=== PATIENT | female | born 1980 | race Caucasian/White ===

== ENCOUNTER 2017-10-15 16:19 | Inpatient (IN) | payer MEDICAID ==
[2017-10-15] MEDS ORDERED: METHYLERGONOVINE 0.2 MG INJ IM (18:30)
[2017-10-15] MEDS ORDERED: MISOPROSTOL 200 MCG TAB PR (18:30)
[2017-10-15] MEDS ORDERED: CARBOPROST 250 MCG INJ IM (18:30)
[2017-10-15] MEDS ORDERED: LIDOCAINE 1% (MPF) 30 ML INJ INJ (18:30)
[2017-10-15 18:44] LABS: ADD MAN DIFF? NO
[2017-10-15 18:48] LABS: WHITE BLOOD COUNT 11.1 10^3/ul (4.8-10.8)
[2017-10-15 18:48] LABS: BASOPHIL # 0.1 10^3/ul (0.0-0.1); BASOPHILS % 0.8 % (0.0-2.0); EOSINOPHILS # 0.9 10^3/ul (0.0-0.5); HEMOGLOBIN 12.3 g/dl (12.0-16.0); LYMPHOCYTES # 1.9 10^3/ul (0.8-2.9); LYMPHOCYTES % 17.1 % (15.0-51.0); MEAN CORPUSCULAR HEMOGLOBIN 29.8 pg (29.0-33.0); MEAN CORPUSCULAR HGB CONC 33.2 g/dl (32.0-37.0); MEAN CORPUSCULAR VOLUME 89.6 fl (82.0-101.0); MEAN PLATELET VOLUME 11.2 fl (7.4-10.4); MONOCYTE # 1.1 10^3/ul (0.3-0.9); MONOCYTES % 9.4 % (0.0-11.0); NEUTROPHIL # 6.9 10^3/ul (1.6-7.5); NEUTROPHILS % 62.1 % (39.0-77.0); PLATELET COUNT 156 10^3/UL (140-415); RED BLOOD COUNT 4.13 10^6/ul (4.20-5.40); RED CELL DISTRIBUTION WIDTH 14.3 % (11.5-14.5)
[2017-10-15] MEDS: LACTATED RINGER'S 1,000 ML IV* (18:50)
[2017-10-15 19:08] LABS: INR 0.95; PARTIAL THROMBOPLASTIN TIME 28.2 Sec (25.0-35.0); PROTIME 12.8 Sec (11.9-14.9)
[2017-10-15 19:41] LABS: HEPATITIS B SURFACE ANTIGEN NEGATIVE (NEGATIVE)
[2017-10-15] MEDS: OXYTOCIN 30 UNITS/LR 500 ML IV (21:30)
[2017-10-16] MEDS: LACTATED RINGER'S 1,000 ML IV* ×4 (01:44→17:44)
[2017-10-16] MEDS ORDERED: FENTAnyl 2MCG/ML-ROPIV 0.2% 100 ML (08:40)
[2017-10-16 11:15] LABS: ADD UMIC NO; UR ASCORBIC ACID NEGATIVE (NEGATIVE); UR BILIRUBIN (Dip) NEGATIVE (NEGATIVE); UR BLOOD (Dip) NEGATIVE (NEGATIVE); UR CLARITY CLEAR (CLEAR); UR COLOR STRAW (YELLOW); UR GLUCOSE (Dip) NEGATIVE (NEGATIVE); UR KETONES (Dip) TRACE mg/dL (NEGATIVE); UR LEUKOCYTE ESTERASE (Dip) NEGATIVE Leu/ul (NEGATIVE); UR NITRITE (Dip) NEGATIVE (NEGATIVE); UR SPECIFIC GRAVITY (Dip) 1.006 (1.003-1.030); UR TOTAL PROTEIN (Dip) NEGATIVE (NEGATIVE); UR UROBILINOGEN (Dip) NEGATIVE (NEGATIVE)
[2017-10-16] MEDS ORDERED: FENTAnyl 2MCG/ML-ROPIV 0.2% 100 ML BAG EPI (11:30)
[2017-10-16] MEDS ORDERED: DIPHENHYDRAMINE 50 MG INJ IV (11:30)
[2017-10-16] MEDS ORDERED: ONDANSETRON 4 MG INJ IV (11:30)
[2017-10-16] MEDS ORDERED: NALOXONE (0.4 MG/ML) INJ IV (11:30)
[2017-10-16] MEDS ORDERED: TRIMETHOBENZAMIDE 100 MG/ML VIAL IM (11:30)
[2017-10-16] MEDS: OXYTOCIN 30 UNITS/LR 500 ML IV ×2 (13:53→14:06)
[2017-10-16] MEDS ORDERED: OXYTOCIN 30 UNITS/LR 500 ML IV (16:30)
[2017-10-16] MEDS ORDERED: DIBUCAINE 1% 30 GM OINT TOP (16:30)
[2017-10-16] MEDS ORDERED: MISOPROSTOL 200 MCG TAB PR (16:30)
[2017-10-16] MEDS ORDERED: HYDROCODONE/APAP (5/325) TAB PO ×2 (16:30)
[2017-10-16] MEDS ORDERED: WITCH HAZEL/GLYCERIN PAD PR (16:30)
[2017-10-16] MEDS ORDERED: CARBOPROST 250 MCG INJ IM (16:30)
[2017-10-16] MEDS ORDERED: METHYLERGONOVINE 0.2 MG INJ IM (16:30)
[2017-10-16] MEDS ORDERED: ZOLPIDEM 5 MG TAB PO (16:30)
[2017-10-16] MEDS ORDERED: BENZOCAINE 20% 56 ML SPRAY TOP (16:30)
[2017-10-16] MEDS: IBUPROFEN 600 MG TAB PO ×2 (17:12→23:37)
[2017-10-16] MEDS: CEPHALEXIN 500 MG CAP PO ×2 (17:12→23:37)
[2017-10-16] MEDS: MAGNESIUM HYDROXIDE 30ML CUP PO (20:58)
[2017-10-16] MEDS: SENNA/DOCUSATE NA (8.6MG/50MG) TAB PO (20:58)
[2017-10-16 21:33] LABS: RAPID PLASMA REAGIN NONREACTIVE (NR)
[2017-10-17] MEDS: LACTATED RINGER'S 1,000 ML IV* ×3 (02:21→16:25)
[2017-10-17] MEDS: IBUPROFEN 600 MG TAB PO ×4 (05:49→23:30)
[2017-10-17] MEDS: CEPHALEXIN 500 MG CAP PO ×4 (05:49→23:30)
[2017-10-17] MEDS: SENNA/DOCUSATE NA (8.6MG/50MG) TAB PO ×2 (10:05→21:29)
[2017-10-17] MEDS: MAGNESIUM HYDROXIDE 30ML CUP PO ×2 (10:06→21:29)
[2017-10-17 11:07] LABS: ADD MAN DIFF? NO
[2017-10-17 11:15] LABS: WHITE BLOOD COUNT 14.6 10^3/ul (4.8-10.8)
[2017-10-17 11:15] LABS: BASOPHIL # 0.1 10^3/ul (0.0-0.1); BASOPHILS % 0.8 % (0.0-2.0); EOSINOPHILS # 0.6 10^3/ul (0.0-0.5); EOSINOPHILS % 3.8 % (0.0-7.0); HEMATOCRIT 34.4 % (37.0-47.0); HEMOGLOBIN 11.3 g/dl (12.0-16.0); LYMPHOCYTES # 2.1 10^3/ul (0.8-2.9); LYMPHOCYTES % 14.3 % (15.0-51.0); MEAN CORPUSCULAR HEMOGLOBIN 29.9 pg (29.0-33.0); MEAN CORPUSCULAR HGB CONC 32.8 g/dl (32.0-37.0); MEAN PLATELET VOLUME 11.2 fl (7.4-10.4); MONOCYTE # 1.3 10^3/ul (0.3-0.9); MONOCYTES % 8.7 % (0.0-11.0); NEUTROPHIL # 10.4 10^3/ul (1.6-7.5); NEUTROPHILS % 70.9 % (39.0-77.0); PLATELET COUNT 164 10^3/UL (140-415); RED BLOOD COUNT 3.78 10^6/ul (4.20-5.40); RED CELL DISTRIBUTION WIDTH 14.2 % (11.5-14.5)
[2017-10-18] MEDS: LACTATED RINGER'S 1,000 ML IV* (00:25)
[2017-10-18] MEDS: CEPHALEXIN 500 MG CAP PO ×2 (06:06→12:59)
[2017-10-18] MEDS: IBUPROFEN 600 MG TAB PO ×2 (06:06→12:59)
[2017-10-18] MEDS: VARICELLA VACCINE LIVE/PF 1,350 UNIT/0.5 ML ML SC* (09:00)
[2017-10-18] MEDS: DIPHTH/TET/ACEL PERTUSS (ADULT) 0.5 ML VIAL IM* (09:00)
[2017-10-18] MEDS: MEASLES,MUMPS,RUBELLA VACCINE INJ SC* (09:00)
[2017-10-18] MEDS: SENNA/DOCUSATE NA (8.6MG/50MG) TAB PO (10:24)
[2017-10-18] MEDS: MAGNESIUM HYDROXIDE 30ML CUP PO (10:24)
[2017-10-18] MEDS: LANOLIN 7 GM TUBE TOP (13:28)
== END 2017-10-18 14:10 | disposition home or self-care (01) | DRG 775 ==
LOC: L-D 16:19 → PP1 10-16 16:10
PROVIDERS: Obstetrics & Gynecology
PROC: 10E0XZZ Delivery of Products of Conception, External Approach (ICD-10-PCS; principal; 2017-10-16)
DX: O80 Encounter for full-term uncomplicated delivery (principal); Z3A.39 39 weeks gestation of pregnancy; Z37.0 Single live birth
CPT/HCPCS: 62319; 76815; 81003; 85025; 85610; 85730; 86592; 86850; 86900; 86901; 87086; 87340